=== PATIENT | male | born 1940 | race Caucasian/White ===

== ENCOUNTER 2024-08-13 11:26 | Emergency (ER) | payer MEDICARE ==
[~2024-08-13] VITALS: Ht 188 cm; Wt 81.6 kg
[2024-08-13 12:59] LABS: COVID19 (SARS ANTIGEN RAPID) PRESUMPTIVE NEGATIVE (NEGATIVE); INFLUENZA TYPE A Negative For Type A (NEGATIVE); INFLUENZA TYPE B Negative For Type B (NEGATIVE)
--- NOTE | 2024-08-13 13:28 | ERN ---
ED Note History of Present Illness Stated Complaint: LEFT EARACHE Chief Complaint: Flu Symptoms Dictation: 84-year-old male presents to the ED for evaluation of left ear pain onset one week ago. Patient reports cough, nasal congestion, body aches and left shoulder pain, but denies any other associated symptoms at this time. Patient states his has similar symptoms and were both prescribed Z-Davion a couple of days ago. Surgical history of stents placed 15 years ago. Home Meds Active Scripts Prednisone (Prednisone) 20 Mg Tablet, 1 TAB PO AD for 5 Days, #5 TAB 0 Refills TAKE 1 TAB BY MOUTH THREE TIMES PER DAY X3 DAYS, THEN TAKE 1 TAB BY MOUTH TWICE A DAY X2 DAYS, THEN TAKE 1 TAB BY MOUTH ONCE A DAY X1 DAY. Prov:GOMEZ VEGA MD 08/13/24 Past Medical History Past Medical History: [place] Surgical History: None Surgical History Other: STENTS Review of System Dictation Constitutional: Positive for body aches Negative for fever,chills, and weight loss Eyes: Negative for injury, pain,redness, and discharge ENT: Positive for ear pain, nasal congestion Cardiovascular: Negative for chest pain, palpitations, and edema Respiratory: Positive for cough,Negative for shortness of breath, and wheezing, Abdomen/GI: Negative for abdominal pain, nausea, vomiting, diarrhea, and constipation Back: Negative for injury and pain : Negative for injury, bleeding and discharge MS/Extremity: Positive for left shoulder pain Negative for injury and deformity Skin: Negative for rash, and discoloration Neuro: Negative for headache, weakness, numbness, tingling, and seizure Psych: Negative for suicide ideation, homicidal ideation, and hallucinations Initial Vital Sign VS Vital Signs Date Time Temp Pulse Resp B/P (MAP) Pulse Ox O2 Delivery O2 Flow Rate FiO2 08/13/24 12:20 97.9 69 20 145/77 97 Room Air 0 08/13/24 13:48 21 Physical Exam Dictation General: awake, alert, NAD Head/Face: Normocephalic, atraumatic Eyes: PERRL, EOMI, vision at baseline ENT: oral cavity clear, TMs clear, no signs of infection Neck: Trachea midline, supple, no nuchal rigidity Cardiovascular: RRR, normal S1/S2, No MRGs, no JVD Respiratory: CTAB, no respiratory distress, No rales or wheezes Abdomen: Soft, non-tender, non-distended, normal bowel sounds, no guarding or rebound. Skin: Warm, dry, normal turgor, no rash MS/Extremity: Pulses equal, no cyanosis, neurovascular intact, FROM Neuro: COAx4, GCS 15, strength 5/5, CN 2-12 intact, normal cerebellar exam, normal gait, Psych: Normal behavior, mood, and affect normal Results (Laboratory/Radiology) Laboratory/Radiology Laboratory Tests Test 08/13/24 12:26 Influenza Type A Antigen Negative For Type A Influenza Type B Antigen Negative For Type B SARS-CoV-2 Antigen (Rapid) PRESUMPTIVE NEGATIVE Labs Reviewed?: Yes EKG Comment: EKG 08/13/2024 time 12:22 p.m. ventricular rate 64, WV 248, QRS D 152, QT 409. Sinus rhythm, prolonged WV interval, right bundle-branch block. No STEMI ED Course ED Course Orders Procedure Category Date Status Time 12 Lead Ekg Tracing- EKG 08/13/24 Logged Technical 12:22 Influenza Type A & B, LAB 08/13/24 Complete Rapid 12:31 Covid19 (Sars Antigen LAB 08/13/24 Complete Rapid) 12:31 Chest 1vw RAD 08/13/24 Resulted 12:31 Vital Signs Date Time Temp Pulse Resp B/P (MAP) Pulse Ox O2 Delivery O2 Flow Rate FiO2 08/13/24 13:48 98.1 70 16 140/74 98 Room Air* 0 21 08/13/24 12:20 97.9 69 20 145/77 97 Room Air 0 Medical Decision Making MDM MDM: Differential diagnosis: URI, viral syndrome Risk of complication and/or morbidity or mortality of patient management: None Medications-Per medication reconciliation Need for hospitalization: Patient does not meet criteria for hospitalization. Need for emergency major/minor surgery: No There are no social concerns with this patient. Prescription drug management Prescriptions will include symptomatic care I independently interpreted the test that were performed, results were reviewed by me and considered findings on radiology if ordered. DX & DISP Disposition: Discharge Departure Impression: Primary Impression: Acute URI Condition: Stable Scripts Prednisone (Prednisone) 20 Mg Tablet 1 TAB PO AD for 5 Days, #5 TAB 0 Refills TAKE 1 TAB BY MOUTH THREE TIMES PER DAY X3 DAYS, THEN TAKE 1 TAB BY MOUTH TWICE A DAY X2 DAYS, THEN TAKE 1 TAB BY MOUTH ONCE A DAY X1 DAY. Prov: GOMEZ VEGA MD 08/13/24 Referrals: SELF,REFERRAL (PCP) GOMEZ VEGA MD Aug 13, 2024 13:28
[2024-08-13 13:48] VITALS: BP 140/74; PULSE 70; RESP 16; TEMP 98.1; O2SAT 98
--- NOTE | 2024-08-13 14:08 | HMCIMG ---
CHEST 1VW REASON: cough COMPARISON: None. FINDINGS: Single view of the chest was obtained. Lungs are clear. Heart size is normal. There is no pulmonary vascular congestion. Mediastinum and bony thorax appear unremarkable. IMPRESSION: 1. Normal single view chest x-ray.
[2024-08-13] MEDS ORDERED: PRED20TA3 PO (14:24)
--- NOTE | 2024-08-13 14:57 | EKG ---
[facility] Test Date: 2024-08-13 Test Time: 12:22:10 Pat Name: PATRICK LOAIZA Department: [facility] Room: Gender: M Package Drier: [id number] : 1940 Requested By: GOEMZ VEGA Order Number: [id number] Reading MD: Carson Reddy Measurements Intervals [place] Rate: 64 P: 39 MN: 248 QRS: 35 QRSD: 152 T: 7 QT: 409 QTc: 423 Interpretive Statements Sinus rhythm Prolonged MN interval Right bundle branch block No previous ECG available for comparison Electronically Signed On 08-14-2024 11:52:58 PORTER BATH by Carson Reddy Please click the below link to view image of tracing.
== END 2024-08-13 14:32 | disposition home or self-care (01) ==
LOC: EDH 11:26
DX: J06.9 Acute upper respiratory infection, unspecified (principal); I25.2 Old myocardial infarction; Z20.822 Contact with and (suspected) exposure to COVID-19
CPT/HCPCS: 71045; 87426; 87804; 93005; 99285